=== PATIENT | female | born 1980 | race Caucasian/White ===

== ENCOUNTER 2023-01-31 18:19 | Observation (INO) | payer OTHER ==
[2023-01-31] MEDS ORDERED: Sodium Chloride 0.9% 1,000 ML IV ONE ×2 (18:32→20:17)
[2023-01-31] MEDS ORDERED: Ondansetron 4 MG/2 ML SDV IVPUSH ONE (18:36)
[2023-01-31 18:57] LABS: BASOPHILS ABSOLUTE AUTO 0.1 K/uL (0.0-0.1); BASOPHILS PERCENT AUTO 0.2 % (0.0-1.5); EOSINOPHILS ABSOLUTE AUTO 0.5 K/uL (0.0-0.7); EOSINOPHILS PERCENT AUTO 2.3 % (0.0-7.0); HEMATOCRIT 40.6 % (36.0-46.0); HEMOGLOBIN 13.9 g/dL (12.0-16.0); LYMPHOCYTES ABSOLUTE AUTO 2.8 K/uL (0.6-2.4); LYMPHOCYTES PERCENT AUTO 12.7 % (16.0-40.0); MEAN CORPUSCULAR HGB CONC 34.2 g/dL (31.0-37.0); MEAN CORPUSCULAR VOLUME 84.8 fL (80.0-98.0); MONOCYTES ABSOLUTE AUTO 0.7 K/uL (0.0-0.8); MONOCYTES PERCENT AUTO 3.2 % (0.0-15.0); NEUTROPHILS ABSOLUTE AUTO 18.2 K/uL (1.4-5.7); NEUTROPHILS PERCENT AUTO 81.6 % (48.0-80.0); NRBC ABSOLUTE 0 K/uL; PLATELET COUNT,PLT 328 K/uL (150-400); RED BLOOD CELL COUNT 4.79 M/uL (4.30-5.90); WHITE BLOOD CELL COUNT,WBC 22.26 K/uL (4.0-11.0)
[2023-01-31 18:59] LABS: APPEARANCE,URINE CLEAR; BILIRUBIN,URINE NEGATIVE (NEGATIVE); COLOR,URINE YELLOW; GLUCOSE,URINE NEGATIVE (NEGATIVE); KETONES,URINE NEGATIVE (NEGATIVE); LEUKOCYTE ESTERASE,URINE NEGATIVE (NEGATIVE); NITRITE,URINE NEGATIVE (NEGATIVE); OCCULT BLOOD,URINE TRACE-INTACT (NEGATIVE); PH,URINE 5.5 (5.0-8.0); PROTEIN,URINE NEGATIVE (NEGATIVE); UROBILINOGEN,URINE 0.2 EU/dL (<2.0)
[2023-01-31] MEDS ORDERED: Iopamidol 755 MG/ML 500 ML Multipack Bottle IVPUSH ONE (19:13)
[2023-01-31 19:14] LABS: BACTERIA,URINE RARE (NEGATIVE); EPITHELIAL CELLS,URINE OCCASIONAL (NONE-FEW); WBC,URINE 0-1 (0-5/HPF)
[2023-01-31 19:17] LABS: A/G RATIO 1.2 (0.9-1.6); ALBUMIN 3.9 g/dL (3.4-5.0); BILIRUBIN TOTAL 0.3 mg/dL (0.2-1.0); CALCIUM 8.9 mg/dL (8.5-10.1); CARBON DIOXIDE,CO2 26.4 mmol/L (21.0-32.0); CREATININE 0.7 mg/dL (0.6-1.0); EST CRCL DRUG DOSING (CG) 109.41 mL/min; POTASSIUM,K 4.1 mmol/L (3.5-5.1); PROTEIN TOTAL,TP 7.1 g/dL (6.4-8.2)
[2023-01-31] MEDS ORDERED: Piperacillin/Tazobactam 3.375 GM in Sodium Chloride 0.9% 100 ML IV ONE (20:03)
[2023-01-31 20:09] LABS: LACTIC ACID 2.5 mmol/L (0.4-2.0)
[2023-01-31 20:38] LABS: INR 0.99 (0.86-1.11)
[2023-01-31] MEDS ORDERED: Ketorolac 30 MG/ML SDV IVPUSH PRN (21:14)
[2023-01-31] MEDS ORDERED: HYDROmorphone 2 MG/ML Syringe IVPUSH PRN (21:14)
[2023-01-31] MEDS ORDERED: Sodium Chloride 0.9% 2.5 ML Syringe FLUSH PRN (21:14)
[2023-01-31] MEDS ORDERED: Sodium Chloride 0.9% 10 ML Syringe FLUSH PRN (21:14)
[2023-01-31] MEDS ORDERED: diphenhydrAMINE 50 MG/ML SDV IVPUSH PRN (21:14)
[2023-01-31] MEDS ORDERED: Sodium Chloride 0.9% 20 ML SDV IV PRN (21:14)
[2023-01-31] MEDS ORDERED: Metoclopramide 10 MG/2 ML SDV IVPUSH ONE (21:29)
[2023-01-31] MEDS ORDERED: Scopolamine 1.5 MG Transdermal Patch TRDERM STA (21:29)
[2023-01-31] MEDS ORDERED: Metoclopramide 10 MG/2 ML SDV IVPUSH PRN (21:48)
[2023-01-31] MEDS ORDERED: Ondansetron 4 MG/2 ML SDV IVPUSH PRN (21:48)
[2023-01-31 22:13] LABS: LACTIC ACID 2.2 mmol/L (0.4-2.0)
[2023-01-31] MEDS: Lactated Ringers 1,000 ML IV SCH (22:30)
[2023-01-31] MEDS: Acetaminophen/HYDROcodone 325-10 MG Tab PO PRN (22:33)
[2023-01-31] MEDS ORDERED: Lactated Ringers 500 ML IV ONE (23:17)
[2023-02-01] MEDS ORDERED: Piperacillin/Tazobactam 4.5 GM in Sodium Chloride 0.9% 100 ML IV SCH ×2 (04:00→10:00)
[2023-02-01] MEDS ORDERED: Piperacillin/Tazobactam 3.375 GM in Sodium Chloride 0.9% 100 ML IV SCH (04:00)
[2023-02-01 04:17] LABS: BASOPHILS PERCENT AUTO 0.1 % (0.0-1.5); HEMATOCRIT 36.9 % (36.0-46.0); HEMOGLOBIN 12.5 g/dL (12.0-16.0); LYMPHOCYTES ABSOLUTE AUTO 2.3 K/uL (0.6-2.4); LYMPHOCYTES PERCENT AUTO 9.3 % (16.0-40.0); MEAN CORPUSCULAR HEMOGLOBIN 29.1 pg (27.0-32.0); MEAN CORPUSCULAR HGB CONC 33.9 g/dL (31.0-37.0); MEAN CORPUSCULAR VOLUME 85.8 fL (80.0-98.0); MONOCYTES PERCENT AUTO 4.2 % (0.0-15.0); NEUTROPHILS ABSOLUTE AUTO 20.9 K/uL (1.4-5.7); NEUTROPHILS PERCENT AUTO 86.4 % (48.0-80.0); NRBC ABSOLUTE 0 K/uL; PLATELET COUNT,PLT 254 K/uL (150-400); WHITE BLOOD CELL COUNT,WBC 24.25 K/uL (4.0-11.0)
[2023-02-01 04:37] LABS: CALCIUM 7.9 mg/dL (8.5-10.1); CARBON DIOXIDE,CO2 26.1 mmol/L (21.0-32.0); CREATININE 0.7 mg/dL (0.6-1.0); EST CRCL DRUG DOSING (CG) 109.41 mL/min
[2023-02-01] MEDS: Lactated Ringers 1,000 ML IV SCH ×2 (06:09→18:42)
[2023-02-01] MEDS ORDERED: fentaNYL 250 MCG/5 ML SDV ONE (07:20)
[2023-02-01] MEDS ORDERED: Midazolam 1 MG/ML 2 ML SDV ONE (07:20)
[2023-02-01] MEDS ORDERED: Propofol 200 MG/20 ML SDV ONE (07:20)
[2023-02-01] MEDS ORDERED: Rocuronium Bromide 50 MG/5 ML Syringe ONE (07:21)
[2023-02-01] MEDS ORDERED: Sugammadex Sodium 200 MG/2 ML VIAL ONE (07:22)
[2023-02-01] MEDS ORDERED: Ondansetron 4 MG/2 ML SDV ONE (07:22)
[2023-02-01] MEDS ORDERED: Dexamethasone 4 MG/ML 5 ML MDV ONE (07:22)
[2023-02-01] MEDS ORDERED: Bupivacaine 0.5% 30 ML SDV ONE (07:28)
[2023-02-01] MEDS ORDERED: Ropivacaine 0.5% 5 MG/ML 30 ML SDV ONE (07:32)
[2023-02-01] MEDS ORDERED: Bupivacaine 0.25% 30 ML SDV ONE (07:32)
[2023-02-01] MEDS ORDERED: Water For Injection, Sterile 20 ML ONE (07:39)
[2023-02-01] MEDS ORDERED: Ondansetron 4 MG/2 ML SDV IVPUSH PRN (07:42)
[2023-02-01] MEDS ORDERED: Albuterol 0.083% 2.5 MG/3 ML Neb Soln NEB PRN (07:42)
[2023-02-01] MEDS ORDERED: HYDROmorphone 1 MG/ML Syringe IVPUSH PRN ×2 (07:42→07:45)
[2023-02-01] MEDS ORDERED: Metoclopramide 10 MG/2 ML SDV IVPUSH PRN (07:42)
[2023-02-01] MEDS ORDERED: Morphine 2 MG/ML SYRINGE IVPUSH PRN (07:42)
[2023-02-01] MEDS ORDERED: Naloxone 0.4 MG/ML SDV IVPUSH PRN (07:42)
[2023-02-01] MEDS ORDERED: fentaNYL 50 MCG/ML SDV IVPUSH PRN (07:42)
[2023-02-01] MEDS ORDERED: droPERidol 5 MG/2 ML SDV IVPUSH PRN (07:42)
[2023-02-01] MEDS: Acetaminophen/HYDROcodone 325-10 MG Tab PO PRN ×2 (11:43→17:37)
[2023-02-01] MEDS: Piperacillin/Tazobactam 4.5 GM in Sodium Chloride 0.9% 100 ML IV SCH ×2 (14:38→20:28)
[2023-02-01 16:41] LABS: HEMATOCRIT 36.5 % (36.0-46.0); HEMOGLOBIN 12.4 g/dL (12.0-16.0); MEAN CORPUSCULAR HEMOGLOBIN 29.2 pg (27.0-32.0); MEAN CORPUSCULAR VOLUME 86.1 fL (80.0-98.0); MEAN PLATELET VOLUME 8.7 fL (7.40-12.00); RED BLOOD CELL COUNT 4.24 M/uL (4.30-5.90); WHITE BLOOD CELL COUNT,WBC 20.69 K/uL (4.0-11.0)
[2023-02-01 19:09] LABS: LACTIC ACID 2.9 mmol/L (0.4-2.0)
[2023-02-02] MEDS: Acetaminophen/HYDROcodone 325-10 MG Tab PO PRN (00:52)
[2023-02-02] MEDS: Piperacillin/Tazobactam 4.5 GM in Sodium Chloride 0.9% 100 ML IV SCH ×2 (02:07→09:27)
[2023-02-02] MEDS ORDERED: Acetaminophen 325 MG Tab PO PRN (06:21)
[2023-02-02] MEDS ORDERED: Acetaminophen 325 MG Tab ONE (06:23)
[2023-02-02] MEDS ORDERED: Acetaminophen/HYDROcodone 325-10 MG Tab PO PRN (06:26)
[2023-02-02 07:17] LABS: BASOPHILS PERCENT AUTO 0.1 % (0.0-1.5); EOSINOPHILS ABSOLUTE AUTO 0.1 K/uL (0.0-0.7); EOSINOPHILS PERCENT AUTO 0.5 % (0.0-7.0); HEMATOCRIT 35.5 % (36.0-46.0); HEMOGLOBIN 11.6 g/dL (12.0-16.0); LYMPHOCYTES ABSOLUTE AUTO 3.2 K/uL (0.6-2.4); MEAN CORPUSCULAR HEMOGLOBIN 28.5 pg (27.0-32.0); MEAN CORPUSCULAR HGB CONC 32.7 g/dL (31.0-37.0); MEAN CORPUSCULAR VOLUME 87.2 fL (80.0-98.0); MONOCYTES ABSOLUTE AUTO 0.7 K/uL (0.0-0.8); MONOCYTES PERCENT AUTO 4.8 % (0.0-15.0); NEUTROPHILS ABSOLUTE AUTO 10.4 K/uL (1.4-5.7); NEUTROPHILS PERCENT AUTO 72.6 % (48.0-80.0); NRBC ABSOLUTE 0 K/uL; PLATELET COUNT,PLT 244 K/uL (150-400); RED BLOOD CELL COUNT 4.07 M/uL (4.30-5.90); WHITE BLOOD CELL COUNT,WBC 14.34 K/uL (4.0-11.0)
== END 2023-02-02 09:45 | disposition home or self-care (01) ==
LOC: MW.ED 18:19 → MW.MS 21:00
PROVIDERS: ADMIT Surgery; ATTEND Surgery
DX: K35.30 Acute appendicitis with localized peritonitis, without perforation or gangrene (principal); A41.9 Sepsis, unspecified organism; E86.0 Dehydration; Z79.2 Long term (current) use of antibiotics
CPT/HCPCS: 36415; 44970; 64488; 74177; 80048; 80053; 81001; 83605; 83690; 84703; 85025; 85027; 85610; 87040; 87070; 87075; 87205; 93005; 96361; 96365; 96366; 96375; 96376; 99285; A9270; G0378; J1100; J1170; J1885; J2250; J2405; J2543; J2704; J2765; J2795; J3010; J3490; J7030; J7120; Q9967; 00840; 93010; 99284